=== PATIENT | male | born 1995 | race Two or more races ===

== ENCOUNTER 2016-12-21 12:38 | Emergency (ER) | payer SELFPAY ==
[~2016-12-21] VITALS: Ht 182.9 cm; Wt 73.9 kg
[2016-12-21 12:44] VITALS: BP 113/59
== END 2016-12-21 15:24 | disposition home or self-care (01) ==
LOC: ER 12:46
DX: S67.192A Crushing injury of right middle finger, initial encounter (principal); W20.8XXA Other cause of strike by thrown, projected or falling object, initial encounter; Y93.89 Activity, other specified; Y92.69 Other specified industrial and construction area as the place of occurrence of the external cause; Y99.0 Civilian activity done for income or pay
CPT/HCPCS: 73130-TC; A4606; Z7610